=== PATIENT | female | born 1960 | race Caucasian/White ===

== ENCOUNTER 2022-08-21 13:28 | Outpatient (REF) | payer MEDICARE, MEDICAID, SELFPAY ==
[2022-08-22 00:01] LABS: ALT 29 U/L (14-59); AST 21 U/L (15-37); Albumin 4.3 g/dL (3.4-5.0); Alkaline Phosphatase 62 U/L (46-116); Anion Gap 9.1 mmol/L (3-11); BUN 12 mg/dL (7-18); Bilirubin, Total 0.6 mg/dL (0.2-1.0); CO2 26.9 mmol/L (21.0-32.0); CREATININE 0.7 mg/dL (0.55-1.02); Calcium 10.3 mg/dL (8.5-10.1); Calculated LDL 117 mg/dL (<100); Chloride 105 mmol/L (98-107); Cholesterol 263 mg/dL (<200); Estimated GFR 97.72 (mL/min/1.73m2); Glucose 84 mg/dL (74-106); HDL Cholesterol 137 mg/dL (40-60); Magnesium 2.1 mg/dL (1.8-2.4); Potassium 4.1 mmol/L (3.5-5.1); Sodium 141 mmol/L (136-145); Total Protein 7.6 g/dL (6.4-8.2); Triglyceride 45 mg/dL (<150)
[2022-08-23 10:23] LABS: HIV-1/2 Ag & Ab Screen Negative (Negative)
[2022-08-23 10:33] LABS: Hepatitis C Ab w Rflx HCV PCR Negative (Negative)
== END 2022-08-21 13:29 | disposition home or self-care (01) ==
LOC: NCHCN 13:28
PROVIDERS: PCP Nurse Practitioner Family; Visit Provider Nurse Practitioner Family
DX: F10.20 Alcohol dependence, uncomplicated (principal); F41.8 Other specified anxiety disorders; Z11.4 Encounter for screening for human immunodeficiency virus [HIV]; Z11.59 Encounter for screening for other viral diseases; R79.89 Other specified abnormal findings of blood chemistry
CPT/HCPCS: 80053; 80061; 86803; 87389; 83735; 84443

== ENCOUNTER 2022-11-19 15:15 | Outpatient (REF) | payer MEDICARE, MEDICAID, SELFPAY ==
--- NOTE | 2022-11-19 15:00 | PAPFT_PTH ---
PATIENT: Whit Arteaga LOC: [facility] U#:[id number] AGE/SX: 62/F ROOM: RE11/19/[address]: Tori Mcmullen : 1960 BED: DIS: 11/19/2022 SPEC #: [id number] RECD: 11/20/22 13:21 STATUS: KOFI BURNETT #: [id number] RICHARD: 11/19/22 15:[address]: Tori Mcmullen [facility] Cytology RECD BY: Melissa Manzano Tissues: 1 - CX/ENDOCX FOR PAP SMEARS Procedures: PAP THIN PREP/[facility] Screening HPV DNA PROBE Comments: [id number] (CHLAMYDIA/GC)
[2022-11-21 12:52] LABS: Chlamydia Result Negative (Negative); GC Result Negative (Negative)
== END 2022-11-19 15:16 | disposition home or self-care (01) ==
LOC: NCHCN 15:15
PROVIDERS: PCP Nurse Practitioner Family; Visit Provider Nurse Practitioner Family
DX: Z11.3 Encounter for screening for infections with a predominantly sexual mode of transmission (principal); Z11.51 Encounter for screening for human papillomavirus (HPV); Z01.419 Encounter for gynecological examination (general) (routine) without abnormal findings
CPT/HCPCS: 87491; 87591; 88142; 87624

== ENCOUNTER 2023-11-11 21:09 | Outpatient (REF) | payer MEDICARE, MEDICAID, SELFPAY ==
[2023-11-11 17:01] LABS: ALT 33 U/L (14-59); AST 20 U/L (15-37); Albumin 4.2 g/dL (3.4-5.0); Alkaline Phosphatase 56 U/L (46-116); Anion Gap 10.3 mmol/L (3-11); BUN 11 mg/dL (7-18); Bilirubin, Total 0.95 mg/dL (0.2-1.0); CO2 25.7 mmol/L (21.0-32.0); CREATININE 0.7 mg/dL (0.55-1.02); Calcium 10.6 mg/dL (8.5-10.1); Chloride 104 mmol/L (98-107); Estimated GFR 96.52 (mL/min/1.73m2); Glucose 93 mg/dL (74-106); Sodium 140 mmol/L (136-145); Total Protein 7.5 g/dL (6.4-8.2); Vitamin B12 404 pg/mL (193-986)
== END 2023-11-11 21:10 | disposition home or self-care (01) ==
LOC: NCHCN 21:09
PROVIDERS: PCP Nurse Practitioner Family; Visit Provider Nurse Practitioner Family
DX: F10.20 Alcohol dependence, uncomplicated (principal)
CPT/HCPCS: 80053; 82607

== ENCOUNTER 2023-11-20 11:46 | Outpatient (REF) | payer MEDICARE, SELFPAY ==
--- OUTSIDE RECORDS SUMMARY | 2023-11-20 11:52 | XMS_ITS ---
Author Organization Unknown Address [address] [place] [phone] Phone Care Team Providers Care Circulating Nurse Name Role Phone EDER KEARNEY Registered Nurse Unavailable TAMELA Pappas Attending Unavailable SUSANNA Pelaez ER Unavailable KATHERINE Pelaez Primary Unavailable UNLISTED PROVIDER - REQUESTED Xhandoff Un available Results CT HEAD AND CSPINE WO CONTRA ST* - Completed: 12/29/2022 12:23 LOINC: [facility] [place], [place] [address] PACS MEDICAL ORDERLY REPORT Patient Name: QUITA PEMBERTON MRN: Sex: : Age: [id number] F 1960 62 Account: Accession: Admit: StayType: [id number] 12/29/2022 E/R Ordered: Order ID: Submitted: Ordering Provider: 12/29/2022 11:57 [id number] VANDANA BAER Completed: Technologist: Resulted: 12/29/2022 12:23 SLG 12/30/2022 10:00 Study Description: CT HEAD AND CSPINE WO CONTRAST* Study Reason: Swelling Technique: Imaging Protocol: Axial computed tomography images with coronal and sagittal reformatted images were created and reviewed. Comparison: None. FINDINGS: CT Head: Ventricles and Extra axial spaces: Normal in size and morphology for the patient's age. Hemorrhage: None. Cerebral parenchyma: Normal. Midline shift: None. Brainstem/Cerebellum: Normal. Calvarium: Normal. Visualized Paranasal sinuses/Mastoids: There is a mucous retention cyst in the left maxillary sinus. Soft Tissues: Unremarkable. CT Cervical Spine: Bones: No acute fracture or subluxation. There are degenerative changes seen in the spine. There is a left convex scoliosis of the upper thoracic spine. There is straightening of the normal cervical lordosis which may be due to patient positioning or muscle spasm. Soft Tissues: Unremarkable. Lung Apices: Clear. IMPRESSION: 1. No acute intracranial process. 2. No acute fracture or subluxation in the cervical spine. Radiation Optimization: All CT scans at this facility use at least one of these dose optimization techniques: automated exposure control; mA and/or kV adjustment per patient size (includes targeted exams where dose is matched to clinical indication); or iterative reconstruction. Report Digitally Signed by Ajit Javed on 12/30/2022 10:00 AM EDT XR LS SPINE 2V OR 3V - Compl eted: 12/29/2022 13:27 LOINC: [facility] [place], [place] [address] PACS MEDICAL ORDERLY REPORT Patient Name: QUITA PEMBERTON MRN: Sex: : Age: [id number] F 1960 62 Account: Accession: Admit: StayType: [id number] 12/29/2022 E/R Ordered: Order ID: Submitted: Ordering Provider: 12/29/2022 11:57 [id number] VANDANA BAER Completed: Technologist: Resulted: 12/29/2022 13:27 SLG 12/30/2022 10:18 Study Description: XR LS SPINE 2V OR 3V Study Reason: Trauma 4 images were obtained. COMPARISON: Comparison examination is 01/03/2018. FINDINGS: There is a concern a left convex curvature of the thoracolumbar spine. There are degenerative changes seen at L5-S1 with disc base narrowing and endplate osteophytes. No acute fracture or subluxation is present. IMPRESSION: No acute fracture or subluxation. Report Digitally Signed by Ajit Javed on 12/30/2022 10:18 AM EDT XR PELVIS AND HIP LAT LT* - Completed: 12/29/2022 13:27 LOINC: [facility] [place], [place] [address] PACS MEDICAL ORDERLY REPORT Patient Name: QUITA PEMBERTON MRN: Sex: : Age: [id number] F 1960 62 Account: Accession: Admit: StayType: [id number] 12/29/2022 E/R Ordered: Order ID: Submitted: Ordering Provider: 12/29/2022 11:57 [id number] VANDANA BAER Completed: Technologist: Resulted: 12/29/2022 13:27 SLG 12/30/2022 10:12 Study Description: XR PELVIS AND HIP LAT LT Study Reason: Trauma Technique: 2D digital imaging was performed. 2 images were obtained. COMPARISON: None. FINDINGS: Bones: No acute fractures present. No bony destructive lesion is seen. Joints: No dislocation is present. There are mild degenerative changes seen at the sacroiliac joints. The symphysis pubis is unremarkable. There is mild joint space narrowing of the hips bilaterally. Soft tissues: Dystrophic calcification is seen adjacent to the right greater trochanter. IMPRESSION: No acute abnormality. Report Digitally Signed by Ajit Javed on 12/30/2022 10:12 AM EDT Social History Type Status Start Date End Date Code Code Syst em Smoking History Current every day smoker 485928284 SNOMED CT Sex Female Vital Signs Vital Sign Value Unit Sau[place]it Value Sau[place]it Unit Date/Time Recent/Initial? Code Code System Body Mass Index 23.34 kg/m2 12/29/2022 10:59 Initial 15631 -5 LOINC Systolic Blood Pressure 140 mm[Hg] 12/29/2022 14:37 Most Recent 8480- 6 LOINC Diastolic Blood Pressure 86 mm[Hg] 12/29/2022 14:37 Most Recent 8462- 4 LOINC Systolic Blood Pressure 122 mm[Hg] 12/29/2022 10:59 Initial 8480- 6 LOINC Diastolic Blood Pressure 96 mm[Hg] 12/29/2022 10:59 Initial 8462- 4 LOINC Body Surface Area 1.67 m2 12/29/2022 10:59 Initial 3140- 1 LOINC Height 162.560 0 cm 64.00 in 12/29/2022 10:59 Initial 8302- 2 LOINC O2 Saturation 100 % 2022 14:37 Most Recent 76626 -5 LOINC O2 Saturation 100 % 2022 10:59 Initial 38784 -5 LOINC Pulse 67.0 /min 12/29/2022 14:37 Most Recent 8867- 4 LOINC Pulse 77.0 /min 12/29/2022 10:59 Initial 8867- 4 LOINC Respiration 18 /min 12/30/19 14:37 Most Recent 9279- 1 LOINC Respiration 18 /min 12/30/19 10:59 Initial 9279- 1 LOINC Temperature 36.4 Dasha 97.5 F 12/30/19 10:59 Initial 8310- 5 LOINC Weight 61.69 kg 136.00 lbs 12/29/2022 10:59 Initial 89082 -7 LOINC Hospital Discharge Instructions Should you have any questions prior to discharge, please contact a member of your healthcare team. If you have left the hospital and have any questions, please contact your primary care physician. Reason For Referral No Data Found Allergies and Adverse Reactions Allergy Substance Reaction Severity Start Date Concern Status Co de Code System VANCOMYCIN Itching (SNOMED-CT: 692641234) Active 30353 RxNorm Plan of Treatment No Data Found Encounters Encounter Diagnosis Start Date Code Code Sys tem Concussion with no loss of consciousness 12/29/2022 41562892 SNOMED-CT Personal Care Team Section Performer Name Performer Role Active Date Inactive Da te
[2023-11-20 15:19] LABS: Vitamin D 25 Total 44.8 ng/mL (30-100)
[2023-11-22 00:16] LABS: Parathyroid Hormone,Intact 31 pg/mL (19-88)
== END 2023-11-20 11:47 | disposition home or self-care (01) ==
LOC: NCHCN 11:46
PROVIDERS: Nurse Practitioner Psychiatric/Mental Health; PCP Nurse Practitioner Family; Visit Provider Nurse Practitioner Family
DX: E83.52 Hypercalcemia (principal)
CPT/HCPCS: 82306; 83970

== ENCOUNTER 2024-03-02 14:13 | Outpatient (REF) | payer MEDICARE, SELFPAY ==
[2024-03-02 15:42] LABS: HCT 41.6 % (36.0-46.0); HGB 13.5 g/dL (11.2-15.7); MCH 30.8 pg (27.0-33.0); MCHC 32.5 % (32.0-36.0); MCV 95 fL (80-95); MPV 10.6 fL (8.0-11.0); Platelet Count 214 10^3/uL (130-400); RBC 4.38 10^6/uL (3.93-5.22); RDW 12.3 % (11.7-14.6); RDW-SD 42.7 fL; WBC 5.43 10^3/uL (4.4-10.8)
[2024-03-02 15:58] LABS: ALT 31 U/L (14-59); AST 22 U/L (15-37); Albumin 4.3 g/dL (3.4-5.0); Alkaline Phosphatase 62 U/L (46-116); Anion Gap 9.3 mmol/L (3-11); BUN 14 mg/dL (7-18); Bilirubin, Total 0.67 mg/dL (0.2-1.0); CO2 26.7 mmol/L (21.0-32.0); CREATININE 0.7 mg/dL (0.55-1.02); Calcium 10.6 mg/dL (8.5-10.1); Chloride 105 mmol/L (98-107); Estimated GFR 96.52 (mL/min/1.73m2); Glucose 92 mg/dL (74-106); Potassium 4.1 mmol/L (3.5-5.1); Sodium 141 mmol/L (136-145); Total Protein 7.5 g/dL (6.4-8.2)
== END 2024-03-02 14:14 | disposition home or self-care (01) ==
LOC: NCHCN 14:13
PROVIDERS: PCP Nurse Practitioner Family; Visit Provider Nurse Practitioner Family
DX: Z00.00 Encounter for general adult medical examination without abnormal findings (principal); E83.52 Hypercalcemia
CPT/HCPCS: 80053; 85027

== ENCOUNTER 2024-08-24 15:57 | Outpatient (REF) | payer MEDICARE, SELFPAY ==
[2024-08-24 15:36] LABS: ALT 32 U/L (14-59); AST 23 U/L (15-37); Alkaline Phosphatase 69 U/L (46-116); BUN 15 mg/dL (7-18); Bilirubin, Total 1.3 mg/dL (0.2-1.0); CREATININE 0.6 mg/dL (0.55-1.02); Calcium 10.6 mg/dL (8.5-10.1); Calculated LDL 133 mg/dL (<100); Chloride 103 mmol/L (98-107); Cholesterol 248 mg/dL (<200); Estimated GFR 100.17 (mL/min/1.73m2); Glucose 102 mg/dL (74-106); HDL Cholesterol 103 mg/dL (>or=50); Sodium 139 mmol/L (136-145); Total Protein 7.6 g/dL (6.4-8.2); Triglyceride 60 mg/dL (<150)
== END 2024-08-24 15:58 | disposition home or self-care (01) ==
LOC: NCHCN 15:57
PROVIDERS: PCP Nurse Practitioner Family; Visit Provider Nurse Practitioner Family
DX: Z00.00 Encounter for general adult medical examination without abnormal findings (principal); Z13.220 Encounter for screening for lipoid disorders
CPT/HCPCS: 80053; 80061

== ENCOUNTER 2024-09-30 13:41 | Outpatient (REF) | payer MEDICARE, SELFPAY ==
[2024-09-30 16:52] LABS: ALT 33 U/L (14-59); AST 16 U/L (15-37); Albumin 4.5 g/dL (3.4-5.0); Alkaline Phosphatase 69 U/L (46-116); Anion Gap 10.0 mmol/L (3-11); BUN 14 mg/dL (7-18); Bilirubin, Total 1.1 mg/dL (0.2-1.0); CO2 27.0 mmol/L (21.0-32.0); Calcium 10.9 mg/dL (8.5-10.1); Chloride 102 mmol/L (98-107); Estimated GFR 82.23 (mL/min/1.73m2); Glucose 109 mg/dL (74-106); Potassium 4.2 mmol/L (3.5-5.1); Sodium 139 mmol/L (136-145); Total Protein 8.1 g/dL (6.4-8.2)
[2024-09-30 21:31] LABS: Conjugated(Direct) Bili 0.0 mg/dL (<=0.3); Unconjugated(Indirect) Bili 1.0 mg/dL (<=1.1)
[2024-09-30 22:13] LABS: HBs Antibody, Quant <3.1 mIU/mL (See Note); Hepatitis B Surface Ab Negative (See Note)
[2024-09-30 22:52] LABS: HIV-1/2 Ag & Ab Screen Negative (Negative)
[2024-09-30 22:56] LABS: Hepatitis C Ab w Rflx HCV PCR Negative (Negative)
== END 2024-09-30 13:42 | disposition home or self-care (01) ==
LOC: NCHCN 13:41
PROVIDERS: PCP Nurse Practitioner Family; Visit Provider Nurse Practitioner Family
DX: R17 Unspecified jaundice (principal); Z11.59 Encounter for screening for other viral diseases; Z11.4 Encounter for screening for human immunodeficiency virus [HIV]
CPT/HCPCS: 80053; 82248; 86706; 86803; 87389